=== PATIENT | female | born 1965 | race Caucasian/White ===

== ENCOUNTER 2017-09-29 11:40 | Emergency (ER) | payer OTHER ==
[~2017-09-29] VITALS: Ht 154.9 cm; Wt 64.5 kg
[~2017-09-29 11:40] MED LIST: ADVIL200 MG PO; FLEXERIL5 MG PO; HYDROCODON-ACE1 EAC7 PO; LIDOCAINE700 MG TD; LIDODERM 5% P1 PATCH TD; LOPRESSOR25 MG PO; NAPROSYN500 MG PO; PERCOCET 5/31 TABLET PO; REGLAN10 MG PO; TORADOL10 MG PO; ULTRACET1 TABLET PO; VALIUM10 MG PO
[2017-09-29] MEDS ORDERED: MOTRIN600 MG PO (13:33)
[2017-09-29] MEDS ORDERED: VOLTAREN 1% GE100 GM TP (13:33)
[2017-09-29] MEDS ORDERED: LIDODERM 5% P1 PATCH TD (13:33)
[2017-09-29 14:02] VITALS: BP 151/76
== END 2017-09-29 14:21 | disposition home or self-care (01) ==
LOC: EME 11:40
DX: M25.561 Pain in right knee (principal); E78.5 Hyperlipidemia, unspecified; Z88.0 Allergy status to penicillin; F17.200 Nicotine dependence, unspecified, uncomplicated
CPT/HCPCS: 93971; 99281; 99284